=== PATIENT | male | born 1995 | race Caucasian/White ===

== ENCOUNTER 2018-07-30 19:18 | Emergency (ER) | payer BC ==
[~2018-07-30] VITALS: Ht 182.9 cm; Wt 72.7 kg
[2018-07-30 19:20] VITALS: Ht 182.9 cm; Wt 72.7 kg
[2018-07-30] MEDS ORDERED: ADDERALL 5 MG TA5 M1 (19:21)
[2018-07-30] MEDS ORDERED: RANITIDINE HCL150 M1 PO (19:22)
[2018-07-30 20:38] VITALS: BP 128/70
== END 2018-07-30 20:38 | disposition home or self-care (01) ==
LOC: D.ER 19:18
DX: T78.3XXA Angioneurotic edema, initial encounter (principal)